=== PATIENT | male | born 1995 | race Caucasian/White ===

== ENCOUNTER 2023-07-24 07:10 | Emergency (ER) | payer BC ==
[2023-07-24] MEDS ORDERED: TYLENOL 325 MG ONE (07:58)
[2023-07-24] MEDS: TYLENOL 325 MG PO ONE (07:59)
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
[2023-07-24 09:28] VITALS: O2SAT 99
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
[2023-07-24 09:41] VITALS: BP 122/86; PULSE 75; RESP 26
== END 2023-07-24 09:46 | disposition home or self-care (01) ==
LOC: ED 07:10
DX: S16.1XXA Strain of muscle, fascia and tendon at neck level, initial encounter (principal); V89.2XXA Person injured in unspecified motor-vehicle accident, traffic, initial encounter; I10 Essential (primary) hypertension; Z72.0 Tobacco use
CPT/HCPCS: 72125; 99283; A9270-GY